=== PATIENT | male | born 2005 | race Two or more races ===

== ENCOUNTER 2023-07-08 23:17 | Emergency (ER) | payer MEDICAID ==
[~2023-07-08] VITALS: Ht 175.3 cm; Wt 90.7 kg
[2023-07-08] MEDS ORDERED: iohexol 300mg/ml 100ml inj. ONE (23:42)
[2023-07-09] MEDS ORDERED: normal saline 1000ML IV soln IVB ONE (00:05)
[2023-07-09] MEDS ORDERED: TETanus/Pertussis (Acell)/Diphther VAC/PF (Tdap-Adult) 0.5ml syringe IMVAC ONE (00:15)
--- NOTE | 2023-07-09 01:00 | NUR ---
in the trauma secondary assessment pt's wounds (abrasions, bruising) charted under injuries section. no obvious injuries observed.
[2023-07-09 01:11] LABS: BASOPHILS # (AUTO) 0.1 X10'3 (0-0.2); BASOPHILS % (AUTO) 0.5 % (0-1); EOSINOPHILS % (AUTO) 0.5 % (0-6); HEMATOCRIT 48.4 % (42.0-52.0); LYMPHOCYTES # (AUTO) 1.7 X10'3 (1.1-4.8); MEAN CORPUSCULAR HEMOGLOBIN 30.2 PG (27.0-31.0); MEAN CORPUSCULAR HGB CONC 35.1 g/dL (33.0-36.5); MEAN PLATELET VOLUME 8.6 FL (7.4-10.4); MONOCYTES # (AUTO) 0.4 X10'3 (0-0.9); MONOCYTES % (AUTO) 4.3 % (2-12); NEUTROPHILS # (AUTO) 8.2 X10'3 (1.8-7.7); NEUTROPHILS % (AUTO) 78.7 % (42-75); PLATELET COUNT 267 X10'3 (140-440); RED BLOOD COUNT 5.63 X10'6 (4.70-6.10); RED CELL DISTRIBUTION WIDTH 13.1 % (11.5-14.5); WHITE BLOOD COUNT 10.4 X10'3 (4.5-11.0)
[2023-07-09 01:16] LABS: PROTHROMBIN TIME 11.1 SECONDS (9.0-12.0)
[2023-07-09 01:23] LABS: ALANINE AMINOTRANSFERASE 32 U/L (12-78); ALBUMIN 4.3 G/DL (3.4-5.0); ALKALINE PHOSPHATASE 99 IU/L (20-180); ANION GAP 13 (8-16); ASPARTATE AMINO TRANSFERASE 25 U/L (10-37); BILIRUBIN,TOTAL 0.3 MG/DL (0.1-1.0); BLOOD UREA NITROGEN 10 MG/DL (7-18); BUN/CREATININE RATIO 10.3 (10.0-20.0); CALCIUM 8.9 MG/DL (8.5-10.1); CHLORIDE 103 MMOL/L (99-107); CREATININE 0.97 MG/DL (0.60-1.10); GLUCOSE 111 MG/DL (70-104); POTASSIUM 3.8 MMOL/L (3.5-5.1); SODIUM 138 MMOL/L (135-145); TOTAL PROTEIN 8.5 G/DL (6.4-8.2); eCRCL 121 ML/MIN; eGFR > 90 ML/MIN
[2023-07-09 01:33] LABS: CREATINE KINASE 510 U/L (39-308); ETHANOL 107 MG/DL (<10); THYROID STIMULATING HORMONE 2.83 ulU/ml (0.34-4.50)
[2023-07-09 01:36] LABS: LIPASE 40 U/L (16-77)
[2023-07-09] MEDS ORDERED: NO HOME MEDS (01:57)
[2023-07-09 03:21] LABS: BILIRUBIN,URINE NEGATIVE (Neg); CLARITY,URINE CLEAR (Clear); COLOR,URINE STRAW (Yellow); GLUCOSE, URINE NEGATIVE (Neg); KETONES,URINE NEGATIVE (Neg); LEUKOCYTE ESTERASE ,URINE NEGATIVE (Neg); NITRITES, URINE NEGATIVE (Neg); OCCULT BLOOD,URINE NEGATIVE (Neg); PROTEIN,URINE NEGATIVE (Neg); UROBILINOGEN,URINE 0.2 E.U/dL (0.2-1.0)
[2023-07-09 03:28] LABS: UA COLLECTION TYPE CLN CATCH MIDSTREAM
[2023-07-09 03:36] LABS: URINE AMPHETAMINE SCREEN NEGATIVE (Neg); URINE BARBITUATE SCREEN NEGATIVE (Neg); URINE BENZODIAZEPINES SCREEN NEGATIVE (Neg); URINE CANNABINOID SCREEN NEGATIVE (Neg); URINE COCAINE SCREEN NEGATIVE (Neg); URINE OPIATE SCREEN NEGATIVE (Neg); URINE PHENCYCLIDINE SCREEN NEGATIVE (Neg)
[2023-07-09 06:22] VITALS: BP 138/83; PULSE 88; RESP 20; TEMP 98.6; O2SAT 87
== END 2023-07-09 06:36 | disposition home or self-care (01) ==
LOC: ER 23:18
DX: S60.512A Abrasion of left hand, initial encounter (principal); S00.81XA Abrasion of other part of head, initial encounter; F90.9 Attention-deficit hyperactivity disorder, unspecified type; F10.129 Alcohol abuse with intoxication, unspecified; Z79.899 Other long term (current) drug therapy; V49.9XXA Car occupant (driver) (passenger) injured in unspecified traffic accident, initial encounter; Y93.89 Activity, other specified; Y92.89 Other specified places as the place of occurrence of the external cause; Y99.8 Other external cause status; Y90.9 Presence of alcohol in blood, level not specified
CPT/HCPCS: 36415; 70450; 71045; 71260; 72125; 73110; 73130; 74177; 80053; 80305; 80320; 81003; 82550; 83690; 84443; 84484; 85025; 85610; 86885; 86900; 86901; 90471; 90715; 93005; 99291; J7030; Q9967